=== PATIENT | male | born 1995 | race Caucasian/White ===

== ENCOUNTER 2022-03-30 20:47 | Emergency (ER) | payer BC ==
[~2022-03-30] VITALS: Ht 180.3 cm; Wt 115.9 kg
[2022-03-31 00:36] VITALS: BP 144/105
--- NOTE | 2022-03-31 00:50 | NUR ---
strep test obtained at [id number]
== END 2022-03-31 01:51 | disposition home or self-care (01) ==
LOC: ER 20:48
DX: J02.9 Acute pharyngitis, unspecified (principal); Z20.822 Contact with and (suspected) exposure to COVID-19; R05.9 Cough, unspecified; R09.89 Other specified symptoms and signs involving the circulatory and respiratory systems
CPT/HCPCS: 87081; 87502; 87503; 87635; 87880; 99283; C9803; 87077